=== PATIENT | female | born 1960 | race Caucasian/White ===

== ENCOUNTER → 2024-08-11 15:00 | Outpatient (REF) | payer OTHER, SELFPAY | LOC: WDC 15:00 | PROVIDERS: ATTENDING PHYSICIAN Nurse Practitioner Adult Health | DX: Z12.31 Encounter for screening mammogram for malignant neoplasm of breast (principal) | CPT/HCPCS: 77063; 77067 ==

== ENCOUNTER → 2024-09-20 12:55 | Outpatient (REF) | payer OTHER, SELFPAY | LOC: HWRAD 12:55 | PROVIDERS: ATTENDING PHYSICIAN Nurse Practitioner Adult Health | DX: M25.571 Pain in right ankle and joints of right foot (principal) | CPT/HCPCS: 73610 ==

== ENCOUNTER → 2024-10-18 13:56 | Outpatient (REF) | payer OTHER, SELFPAY | LOC: HWRAD 13:56 | PROVIDERS: ATTENDING PHYSICIAN Internal Medicine Rheumatology; REFERRING PHYSICIAN Nurse Practitioner Adult Health | DX: M81.0 Age-related osteoporosis without current pathological fracture (principal) | CPT/HCPCS: 77080 ==

== ENCOUNTER 2025-02-16 06:17 | Day surgery (SDC) | payer OTHER, SELFPAY | END 2025-02-16 08:53 | disposition home or self-care (01) | LOC: GI 06:17 | PROVIDERS: ATTENDING PHYSICIAN Specialist; FAMILY PHYSICIAN Nurse Practitioner Adult Health | DX: Z12.11 Encounter for screening for malignant neoplasm of colon (principal); K63.5 Polyp of colon; K57.30 Diverticulosis of large intestine without perforation or abscess without bleeding; K62.1 Rectal polyp; Z80.0 Family history of malignant neoplasm of digestive organs | CPT/HCPCS: 45380; 88305 ==

== ENCOUNTER 2025-08-05 04:33 | Emergency (ER) | payer MEDICARE, OTHER, SELFPAY ==
[2025-08-05 04:37] VITALS: BP 122/78
[2025-08-05 04:58] VITALS: BP 131/75
[2025-08-05 05:00] VITALS: BP 131/84
[2025-08-05] MEDS: ZOFRAN 4 MG IV (05:13)
[2025-08-05] MEDS: NSS 1000 IV (05:14)
[2025-08-05 05:22] LABS: Hematocrit 39.4 % (37.0-47.0); Hemoglobin 13.8 g/dL (12.0-16.0); Mean Corp Hgb Conc. 35.0 g/dL (33.0-37.0); Mean Corpuscular Volume 86.0 fL (81.0-99.0); Platelet Count 220 10^3/uL (130-400); Red Cell Dist. Width 12.1 % (11.5-14.5)
[2025-08-05 05:33] LABS: Urine Character Clear (Clear)
--- NOTE | 2025-08-05 05:39 | ED.GENMED ---
History of Present Illness
General
Chief Complaint: Abdominal Symptoms
Source: patient
Exam Limitations: none
Time Seen by Provider: 08/05/25 05:05
Nursing documentation reviewed up to this point in time: agreed with
History of Present Illness
History of Present Illness:
64-year-old female presenting to the emergency department today with concerns of 2 days of nausea vomiting diarrhea. Claims to have multiple episodes of each and difficulty tolerating by mouth. Has had some vague body aches. Denies any
significant significant fevers chest pain shortness of breath
Past History
Past History
ED Past Medical History: Other (Breast cancer)
Social History
Tobacco: Non-smoker
Alcohol: Occasional
Family History
Family History: Other (colon cancer, ovarian cancer, breast cancer)
Review of Systems
Review of Systems
Allergies reviewed?: Yes
All Other Systems: ROS reviewed and negative except as documented in HPI and ROS
Phy Exam
Physical Exam
Physical Exam:
GENERAL: Alert , in no apparent distress
EYE: pupils equal and reactive
NECK: Supple, no significant adenopathy.
ENT: o/p clr, mmm.
CARDIAC: Regular rate and rhythm .
LUNGS: Clear breath sounds bilaterally, no acute respiratory distress, no wheezes/rales/rhonchi
ABDOMEN: Soft, without focal tenderness, no r/g, no cvat
NEUROLOGICAL: Alert and oriented, no focal neuro deficits
SKIN: Warm and dry, skin intact.
MUSCULOSKELETAL: No edema, well perfused.
PSYCH: Normal and appropriate interaction.
Course
Orders/Labs/Results
Orders:
Orders
08/05/25 04:42
IV Insert/Care/Rem.- Treatment PRN
Straight cath- Treatment ONCE
08/05/25 05:06
Complete Blood Count/With Diff Urgent
Comprehensive Metabolic Panel Urgent
Lipase Urgent
08/05/25 05:10
Ondansetron Injectable [Zofran] 4 mg IV NOW STA
08/05/25 05:11
0.9% Sodium Chloride 1000 ml [Nss] 1,000 ml IV BOLUS
08/05/25 05:27
Urinalysis Reflex To Culture Urgent
Date Specimen was Collected: 08/05/25
Time Specimen was Collected: 04:43
Urine Microscopic Reflex Cult Urgent
Abnormal Lab Results
08/05/25 08/05/25
05:06 05:27
WBC 4.0 L 10^3/uL
(4.8-10.8)
Sodium 126 L mmol/L
(135-145)
Potassium 3.4 L mmol/L
(3.5-5.1)
Chloride 91 L mmol/L
(98-107)
Glucose 122 H mg/dl
(70-99)
AST 62 H U/L
(14-36)
ALT 63 H U/L
(0-35)
Urine Ketones 3+ A
(Negative)
Ur Occult Blood Reflex 4+ A
(Negative)
Urine RBC 3-6 A /HPF
(0-2)
Urine Bacteria (Reflex) Few A
(Negative)
Urine Albumin (Reflex) 3+ A
(Neg - Trace)
08/05/25 05:06
08/05/25 05:06
Vital Signs
Initial and Last Documented VS:
Initial Vital Signs
Temp Pulse Resp BP Pulse Ox
99.5 F 117 24 122/78 95
08/05/25 04:37 08/05/25 04:37 08/05/25 04:37 08/05/25 04:37 08/05/25 04:37
Last Documented Vital Signs
Temp Pulse Resp BP Pulse Ox
99.5 F 99 20 131/84 94
08/05/25 04:37 08/05/25 05:19 08/05/25 05:19 08/05/25 05:00 08/05/25 05:41
MDM/Problems Addressed
MDM/Problems Addressed:
64-year-old female presenting to the emergency department today with concerns of nausea vomiting diarrhea over the past 2 days. On arrival mildly tachycardic but improving after receiving fluids. Otherwise no abdominal pain to palpation. With
nausea vomiting diarrhea stomach bug is most likely. She was given Zofran and fluids. Patient reassessed a half an hour after treatment with significant improvement and able to tolerate by mouth. Heart rate improving to the 80s. Patient's sodium
was found to be 126. She was given a liter of fluid here at this point patient is tolerating by mouth and feeling much better. She was notified of the lab abnormality and advised for close outpatient follow-up for repeated testing to ensure this
is improving properly but otherwise stable for discharge. Return precautions given.
*Pulse Oximetry
SaO2: 94
Oxygen Mode of Delivery: Room air
Patient hypoxic: no (94)
*Critical Care Note
Total Time (30-74mins, 75-104mins- exclusive of procedures): Not Applicable
ED Attending Note
-
Portions of this chart may have been created with voice recognition software.� Occasional wrong word or��sound alike� substitutions may have occurred due to the inherent limitations of voice recognition software.
Discharge Plan
Departure
Patient Disposition: Home (Routine Discharge)
Date of Disposition: 08/05/25
Time of Disposition: 06:19
Patient with high blood pressure during this ER visit?: No
Condition: Good
Covid-19: Not Applicable
Discharge Problem:
Nausea, vomiting and diarrhea, Acute hyponatremia
Instructions: Dehydration, Adult (DC)
Prescriptions:
New
ondansetron 4 mg tablet,disintegrating
4 mg PO Q6H PRN (Reason: nausea and vomiting) Qty: 7 0RF
No Action
aspirin 81 MG tablet,delayed release (DR/EC)
81 mg PO DAILY
ascorbic acid (vitamin C) [Vitamin C] 500 MG tablet
1,000 mg PO DAILY
magnesium 250 MG tablet
500 mg PO DAILY
bupropion HCl 150 MG tablet extended release 24 hr
150 mg PO DAILY
calcium carbonate-vitamin D3 1 CAP capsule
2 cap PO DAILY
multivitamin with folic acid [Tab-A-Carroll] 1 TABLET tablet
1 tab PO DAILY
Referrals:
Shobha Ortiz CRNP [Family Provider, Internal Medicine]
Activity Restrictions/Additional Instructions:
You came to the emergency department today with concerns of nausea vomiting diarrhea consistent with a stomach bug. You were given medications here with improvement. You were found to have a low sodium level likely related to your vomiting and
diarrhea. Please make sure you consume plenty by mouth and electrolyte solution. Please follow closely with the primary care doctor for repeated labs. Return for any worsening, new or concerning symptoms.
Interventions
Interventions:
*Risk Screen - Suicide Last Done: 08/05/25 04:37
*General Assessment Last Done: 08/05/25 04:37
*Neglect/Abuse Screening Last Done: 08/05/25 04:37
*ED- Fall Risk Assessment Last Done: 08/05/25 04:37
*ED COVID-19 Vaccine History Last Done: 08/05/25 04:37
NR-Whqdwq-Fqzgfwevod Assessment Last Done: 08/05/25 05:30
Discharge Date and Time
Print Language: TAMAZIGHT
[2025-08-05 05:49] LABS: ALT (SGPT) 63 U/L (0-35); AST (SGOT) 62 U/L (14-36); Albumin 4.4 g/dl (3.5-5.0); Alkaline Phosphatase 50 U/L (38-126); Blood Urea Nitrogen 13 mg/dl (7-17); Calcium 9.1 mg/dl (8.4-10.2); Carbon Dioxide 27 mmol/L (22-30); Chloride 91 mmol/L (98-107); Glucose 122 mg/dl (70-99); Lipase 42 U/L (23-300); Potassium 3.4 mmol/L (3.5-5.1); Sodium 126 mmol/L (135-145); Total Protein 6.9 g/dl (6.3-8.2); eGFR > 60.00
[2025-08-05 06:00] VITALS: BP 122/62
[2025-08-05 07:23] LABS: Absolute Neutrophils -Man Diff 3.3 10^3/uL (1.4-6.5); Normal RBC Morphology Yes; Platelets Checked Yes; Total Cells Counted 100
== END 2025-08-05 06:44 | disposition home or self-care (01) ==
LOC: EMR 04:33
PROVIDERS: EMERGENCY PHYSICIAN Student in an Organized Health Care Education/Training Program; FAMILY PHYSICIAN Nurse Practitioner Adult Health
DX: R11.2 Nausea with vomiting, unspecified (principal); R19.7 Diarrhea, unspecified; E87.1 Hypo-osmolality and hyponatremia; Z80.0 Family history of malignant neoplasm of digestive organs; Z80.3 Family history of malignant neoplasm of breast; Z80.41 Family history of malignant neoplasm of ovary; Z85.3 Personal history of malignant neoplasm of breast
CPT/HCPCS: 99283; 96374; 96361; 80053; 81003; 81015; 83690; 85025

== ENCOUNTER 2025-08-06 20:17 | Inpatient (IN) | payer MEDICARE, OTHER, SELFPAY ==
[2025-08-06 13:46] VITALS: BP 146/85
[2025-08-06 14:09] LABS: Hematocrit 36.9 % (37.0-47.0); Hemoglobin 13.1 g/dL (12.0-16.0); Mean Corp Hgb Conc. 35.5 g/dL (33.0-37.0); Mean Corpuscular Volume 85.2 fL (81.0-99.0); Platelet Count 218 10^3/uL (130-400); Red Cell Dist. Width 11.9 % (11.5-14.5)
[2025-08-06 14:21] LABS: ALT (SGPT) 91 U/L (0-35); AST (SGOT) 62 U/L (14-36); Albumin 4.2 g/dl (3.5-5.0); Alkaline Phosphatase 51 U/L (38-126); Blood Urea Nitrogen 12 mg/dl (7-17); Calcium 9.1 mg/dl (8.4-10.2); Carbon Dioxide 26 mmol/L (22-30); Chloride 90 mmol/L (98-107); Glucose 107 mg/dl (70-99); Potassium 3.8 mmol/L (3.5-5.1); Sodium 127 mmol/L (135-145); Total Protein 6.8 g/dl (6.3-8.2); eGFR > 60.00
[2025-08-06 15:05] LABS: Nucleated Red Blood Cells % 0 %
[2025-08-06 16:00] VITALS: BMI 17.4
[2025-08-06 16:01] VITALS: BP 149/86
[2025-08-06] MEDS: NSS 1000 IV (16:11)
--- NOTE | 2025-08-06 16:12 | ED.GENMED ---
History of Present Illness
General
Chief Complaint: Rectal Bleeding
Source: patient
Exam Limitations: none
Time Seen by Provider: 08/06/25 15:41
History of Present Illness
History of Present Illness:
64-year-old female presents with ongoing nausea vomiting diarrhea. Now having maroon blood in the stool. Started this morning. Crampy abdominal pain. Ongoing nausea. Decreased p.o. intake. No travel history. No other family members are ill.
No recent antibiotics.
Past History
Past History
ED Past Medical History: Other (Breast cancer)
ED Past Surgical History: Gynecological, Orthopedic and Other (Blepharoplasty)
Social History
Tobacco: Non-smoker
Alcohol: Occasional
Family History
Family History: Other (colon cancer, ovarian cancer, breast cancer)
Review of Systems
Review of Systems
All Other Systems: Not applicable
Constitutional: Denies fever or chills
Phy Exam
Physical Exam
Physical Exam:
GENERAL: Alert and oriented in no apparent distress
EYE: Orbits normal.
NECK: Supple, no significant adenopathy.
ENT: Pharynx without erythema
CARDIAC: Regular rate and rhythm without any obvious murmurs.
LUNGS: Clear breath sounds,normal
ABDOMEN: Soft, without focal tenderness or distention
NEUROLOGICAL: Alert and oriented , grossly non-focal
SKIN: Warm and dry, no rash or lesion, no discoloration, skin intact.
MUSCULOSKELETAL: No edema,no deformity.Good color
PSYCH: Normal and appropriate interaction. Mild diffuse tenderness. No rebound or guarding no mass or hernia
Course
Orders/Labs/Results
Orders:
Orders
08/06/25 13:54
Complete Blood Count/With Diff Urgent
Comprehensive Metabolic Panel Urgent
08/06/25 16:00
CT Abd/Pel (IV only)-DH only Urgent
Comment:
Reason For Exam: Diffuse abdominal pain/bloody stool
IV Insert/Care/Rem.- Treatment PRN
0.9% Sodium Chloride 1000 ml [Nss] 1,000 ml IV BOLUS
08/06/25 16:07
Lactic Acid Urgent
Lipase Urgent
08/06/25 16:14
Ondansetron Injectable [Zofran] 4 mg IV NOW STA
08/06/25 17:18
STOOL [C difficile Antigen & Toxins] Urgent
[place] Source: Feces/Stool
Specimen Description:
Date Specimen was Collected: 08/06/25
Time Specimen was Collected: 16:38
Stool Culture Urgent
[place] Source: Feces/Stool
Specimen Description:
Date Specimen was Collected: 08/06/25
Time Specimen was Collected: 16:38
08/06/25 19:48
Admit/Transfer Patient As Directed
Co-Sign Provider:
Level of Care: Inpatient admission
Assign to:: Medical/Surgical
Physician / Group: Ino
Diagnosis: Acute Enteritis, Hyponatremia
Reason for Hospitalization: Acute Enteritis, Hyponatremia
Expected length of stay greater than two midnights?: Yes
ELOS- Estimated Length of Stay in days: 2
I certify the patient meets the requirements for IP care: Yes
08/06/25 19:49
PRN Pain Medication Management As Directed
May give lesser potent ordered pain med per pt: Yes
preference::
Protocol:: Medication orders for pain may be administered in a
manner that supports deferring to patient preference
when the pt is:
- Requesting an ordered lesser potent pain medication.
Least to most potent pain medications are defined
as: acetaminophen < NSAID < tramadol < opioids
(morphine, oxycodone, hydromorphone).
- Requesting a lesser dose of the same medication IF
ORDERED.
- Requesting a less intrusive route of administration
if both routes are prescribed by the provider (PO <
IV).
08/06/25 19:50
Code Status As Directed
Resuscitation Status: Full Code
08/06/25 20:40
Urine Osmolality Random [Osmolality, Random Urine] Urgent
Date Specimen was Collected: 08/06/25
Time Specimen was Collected: 19:37
Urine Sodium Urgent
Date Specimen was Collected: 08/06/25
Time Specimen was Collected: 19:37
08/06/25 20:52
Acetaminophen [Tylenol] 650 mg PO Q4HPRN PRN
HYDROmorphone [Dilaudid] 0.5 mg IV Q4HPRN PRN
KCl 40 Meq/0.9%Sodchl 1000 ml [NSS with KCL 40 MEQ] 40 meq in 1,000 ml IV 100 mls/hr
Ondansetron Injectable [Zofran] 4 mg IV Q6HPRN PRN
Trazodone [Desyrel] 100 mg PO HSPRN PRN sleep
08/06/25 20:52
TSH Reflex To Free T4 Routine
Activity As Directed
Activity Level: Ambulate
I/O [Intake/ Output] As Directed
Frequency: Per unit guidelines
Pneumatic Compression Sleeves As Directed
Type: Knee high
Vital Signs As Directed
Frequency: Per unit guidelines
Weight As Directed
Frequency: Daily
Oxygen Therapy [O2 Therapy] [RESP] Routine
Titrate/Wean O2 to maintain O2 sat greater than (%): 94
DX Deep Vein Thrombosis Video Routine
08/07/25 Breakfast
BRAT
At Your Request: Full Participation
Does patient need a safe tray?: No
Basic Metabolic Panel IN AM
Complete Blood Count/No Diff IN AM
Magnesium IN AM
Abnormal Lab Results
08/06/25
13:54
Hct 36.9 L %
(37.0-47.0)
Abs Immat Gran (auto) 0.2 H 10^3/uL
(0-0.05)
Absolute Lymphs (auto) 0.5 L 10^3/uL
(1.2-3.4)
Immature Gran % 4.7 H %
(0-0.5)
Lymphocytes % 9.1 L %
(20.5-51.1)
Monocytes % 11.0 H %
(1.7-9.3)
Sodium 127 L mmol/L
(135-145)
Chloride 90 L mmol/L
(98-107)
Glucose 107 H mg/dl
(70-99)
AST 62 H U/L
(14-36)
ALT 91 H U/L
(0-35)
08/06/25 13:54
08/06/25 13:54
Vital Signs
Initial and Last Documented VS:
Initial Vital Signs
Temp Pulse Resp BP Pulse Ox
98 F 86 18 146/85 98
08/06/25 13:46 08/06/25 13:46 08/06/25 13:46 08/06/25 13:46 08/06/25 13:46
Last Documented Vital Signs
Temp Pulse Resp BP Pulse Ox
98.3 F 75 18 135/77 96
08/07/25 07:33 08/07/25 07:33 08/07/25 07:33 08/07/25 07:33 08/07/25 07:33
MDM/Problems Addressed
Differential Diagnosis Includes:
Patient describing colitis. Doubt ischemic. Will check lactic acid CT scan, Zofran and fluids and stool culture.
*Radiology
Radiology exam reviewed: radiology read reviewed (Large and small bowel thickening)
*Pulse Oximetry
SaO2: 98
Oxygen Mode of Delivery: Room air
Patient hypoxic: no
*Critical Care Note
Total Time (30-74mins, 75-104mins- exclusive of procedures): Not Applicable
Data Reviewed
Review of Other/Old Records Reveals: Labs and Records
ED Attending Note
-
Portions of this chart may have been created with voice recognition software.� Occasional wrong word or��sound alike� substitutions may have occurred due to the inherent limitations of voice recognition software.
Discharge Plan
Departure
Patient Disposition: Admit
Date of Disposition: 08/06/25
Time of Disposition: 19:17
Admit to: Med/Surg
Presentation/result/management discussed w/ accepting MD/DO: Hospitalist
Discharge Problem:
Gastroenteritis, Hyponatremia
Interventions
Interventions:
*Risk Screen - Suicide Last Done: 08/06/25 22:08
*General Assessment Last Done: 08/06/25 16:15
*Neglect/Abuse Screening Last Done: 08/06/25 13:46
*ED- Fall Risk Assessment Last Done: 08/06/25 16:15
*ED COVID-19 Vaccine History Last Done: 08/06/25 22:08
*Nursing Disposition Last Done: 08/06/25 20:44
EQ-Wjapel-Lhlscsznlz Assessment Last Done: 08/06/25 16:15
ED- Cardiac Assessment Last Done: 08/06/25 16:15
ED- Pulmonary Assessment Last Done: 08/06/25 16:15
Discharge Date and Time
Discharge Date/Time: 08/06/25 20:44
[2025-08-06] MEDS: ZOFRAN 4 MG IV (16:23)
[2025-08-06 16:52] LABS: Lipase 71 U/L (23-300)
[2025-08-06 18:30] VITALS: BP 139/71
--- NOTE | 2025-08-06 19:53 | HPS.HSE ---
Family Physician
-
Family Physician: INTERVIEWE UNKNOWN - PT NOT
Chief Complaint
-
N/V/D
History of Present Illness
Patient is a 64y F with PMH significant for breast cancer who presents to ED complaining of N/V/D. Patient states that she woke feeling fairly well on Friday AM. By 9AM she had developed crampy abdominal pain, N/V and diarrhea. She reports
mostly loose, watery stools. Nausea and some emesis when she attempted to intake fluids. She presented to the ED here early in the AM on when symptoms persisted. She was treated with IVFs and antiemetics and felt improved.
Unfortunately, her symptoms persisted after her return home. She has had about 20 loose bowel movements overnight. This AM she noted some bright red blood mixed in the stool. She returned to the ED for further evaluation.
Patient ate at a restaurant Friday evening (cod) - but notes that she only had a bite or two. No other unusual / new food intake. No recent travel. No family sick contacts.
Medical History
Past Medical History
Past Medical History: Reports Other
Additional Past Medical History:
Breast Cancer s/p Surgery and XRT
IBS
Hypertension
Past Surgical History: Reports Other
Additional Past Surgical History:
Left Lumpectomy
Left Knee Arthroscopy
BSO
Abdominoplasty
Social History
Tobacco: Non-smoker
Alcohol: Occasional
Drug: None
Family History
Family History: Not pertinent
Allergies / Home Medications
Allergies reflects when Allergies were last updated in [facility].
Home Medications with original date entered in [facility]
Allergy/Medication List:
Allergies
Allergy/AdvReac Type Severity Reaction Status Date / Time
No Known Allergies Allergy Verified 08/05/25 04:37
Home Medications
calcium 600 mg (as carbonate)-vitamin D3 10 mcg (400 unit) capsule 1 cap PO DAILY 11/29/10
Lactobac no.2-Bifidobac no.1-S. thermo 112.5 billion cell capsule (Visbiome) 1 cap PO BID 08/06/25
NyQuil Liquicaps 1 cap PO HS 08/06/25
chlorthalidone 25 mg tablet 25 mg PO DAILY 08/06/25
cholecalciferol (vitamin D3) 125 mcg (5,000 unit) tablet 125 mcg PO Q48H 08/06/25
coffee extract 100 mg-phosphatidyl serine 100 mg capsule (Neuriva Original) 1 cap PO DAILY 08/06/25
magnesium glycinate 100 mg (as glycinate) tablet 100 mg PO HS 08/06/25
trazodone 100 mg tablet 100 mg PO HSPRN PRN sleep 08/06/25
Review of Systems
-
History Source: Patient
A 12 point ROS was completed and negative except as noted: Yes
Constitutional: Reports Fatigue; Denies Fever or Chills
EENT: Denies Sore Throat
Respiratory: Denies Cough or Trouble Breathing
Cardiac: Denies Chest Pain or Palpitations
Abdomen/GI: Reports Abdominal Pain, Nausea, Vomiting, Diarrhea, Bloody Stools and Anorexia
: Denies Dysuria, Frequency or Flank Pain
Musculoskeletal: Reports Muscle Pain; Denies Joint Pain or Edema
Neurological: Reports Headache; Denies Dizzy
Psych: Denies Depression or Anxiety
Physical Exam
Vital Signs
Vital Signs
Temp Pulse Resp BP Pulse Ox
98 F 86 18 139/71 97
08/06/25 13:46 08/06/25 13:46 08/06/25 13:46 08/06/25 18:30 08/06/25 18:31
Physical Exam
General: Other (64y F in no acute distress.)
HEENT: Moist mucous membranes and PERRLA
Respiratory: Clear; No Wheezes, Rales or Rhonchi
Cardiac: S1/S2 and Regular Rhythm; No Murmur
GI: Other (Soft, diffusely tender without rebound / guarding. Pos bowel sounds.)
Musculoskeletal: No Clubbing, No Cyanosis and No Edema
Neuro: AO x 3
Laboratory Results
-
08/06/25 13:54
08/06/25 13:54
Laboratory Results
Lactic Acid 1.0 mmol/L (0.7-2.0) 08/06/25 16:07
Total Bilirubin 0.8 mg/dl (0.2-1.3) 08/06/25 13:54
AST 62 U/L (14-36) H 08/06/25 13:54
ALT 91 U/L (0-35) H 08/06/25 13:54
Alkaline Phosphatase 51 U/L (38-126) 08/06/25 13:54
Lipase 71 U/L (23-300) 08/06/25 16:07
Impression/Plan
-
A/P: Patient is a 64y F with PMH significant for IBS and breast cancer who presents to ED complaining of N/V/D x 3-4 days.
Acute Gastroenteritis / Colitis
- Admit for further evaluation and treatment.
- Suspect foodborne illness after dining out on Friday.
- Follow-up results of stool studies. Observe off of abx for now.
- Supportive care including IVFs, antiemetics, etc.
- BRAT diet as tolerated in the AM.
- Follow for clinical improvement.
Hyponatremia
- Likely hypovolemic hyponatremia secondary to the above.
- Check urine studies for confirmation.
- IVF support as noted above and follow for improvement in Na levels.
- Hold chlorthalidone.
DVT Prophylaxis: SCDs
Code Status: Full
[2025-08-06 21:27] VITALS: BP 137/75
[2025-08-06] MEDS: NSS with KCL 40 MEQ 1000 IV (21:59)
[2025-08-06] MEDS: DESYREL 100 MG PO (22:54)
[2025-08-07 06:00] VITALS: BMI 23.6
[2025-08-07] MEDS: NSS with KCL 40 MEQ 1000 IV ×2 (07:04→15:43)
[2025-08-07 07:33] VITALS: BP 135/77
[2025-08-07 08:56] LABS: Hematocrit 33.2 % (37.0-47.0); Hemoglobin 11.6 g/dL (12.0-16.0); Mean Corp Hgb Conc. 34.9 g/dL (33.0-37.0); Mean Corpuscular Volume 86.7 fL (81.0-99.0); Platelet Count 224 10^3/uL (130-400); Red Cell Dist. Width 12.1 % (11.5-14.5)
[2025-08-07 09:23] LABS: Blood Urea Nitrogen 6 mg/dl (7-17); Calcium 8.0 mg/dl (8.4-10.2); Carbon Dioxide 25 mmol/L (22-30); Chloride 100 mmol/L (98-107); Estimated Creatinine Clearance 76 ml/min; Glucose 75 mg/dl (70-99); Magnesium 2.0 mg/dl (1.6-2.3); Potassium 3.5 mmol/L (3.5-5.1); Sodium 131 mmol/L (135-145); eGFR > 60.00
--- NOTE | 2025-08-07 10:27 | W.PN.HOSP.TC ---
Today's Communication/Plan
-
Continue supportive care
Assessment / Plan
Assessment / Plan
initial presentation:
Patient is a 64y F with PMH significant for IBS and breast cancer who presents to ED complaining of N/V/D x 3-[address] abd:
Questionable mild large and small bowel wall thickening versus findings due to limited distention.
Limited evaluation without oral contrast.
If thickened the differential diagnoses include infection, inflammation and less likely ischemia.
No evidence of intestinal obstruction.
Mild diverticulosis. No evidence of acute diverticulitis.
Mild free fluid in the pelvis likely reactive.
Hospital course by problem and A/P:
1. Acute Gastroenteritis / Colitis - Suspect foodborne illness after dining out on Friday. Improving
Follow-up results of stool studies. Observe off of abx for now.
Supportive care including IVFs, antiemetics, etc.
BRAT diet as tolerated in the AM.
Follow for clinical improvement.
2. Hyponatremia - Likely hypovolemic hyponatremia secondary to the above.
Check urine studies for confirmation.
IVF support as noted above and follow for improvement in Na levels.
Hold chlorthalidone.
DVT Prophylaxis: SCDs
Code Status: Full
Anticipated Discharge: 24 - 48 hours
Subjective/Interval History
-
Date of Service: August 07, 2025
Starting to feel better, rate of diarrhea improving.
Objective Data
-
Labs:
Laboratory Results
08/07/25
08:43
WBC 4.0 L
Hgb 11.6 L
Hct 33.2 L
Plt Count 224
Sodium 131 L
Potassium 3.5
Chloride 100
Carbon Dioxide 25
BUN 6 L
Creatinine 0.5 L
Glucose 75
Calcium 8.0 L
Vital Signs:
Vital Signs
Temp Pulse Resp BP Pulse Ox
98.3 F 75 18 135/77 96
08/07/25 07:33 08/07/25 07:33 08/07/25 07:33 08/07/25 07:33 08/07/25 07:33
I&O
08/06/25 08/07/25 08/08/25
06:59 06:59 06:59
Intake Total 1000 / 1000
Balance 1000 / 1000
Review of Systems
-
History Source: Patient
All other systems: Reviewed and negative
Physical Exam
-
General: Well Developed, Well Nourished, No Apparent Distress and Comfortable
HEENT: Normocephalic, Atraumatic and Moist Mucous Membranes
Respiratory: Clear to Auscultation
Cardiac: Regular Rhythm and S1/S2
GI: Soft, Nontender and Nondistended
Musculoskeletal: No Clubbing, No Cyanosis and No Edema
Skin: Warm and Dry
Psych: Calm
Data Reviewed
-
Labs: Labs Reviewed by me
--- NOTE | 2025-08-07 10:55 | CM ---
CM met with pt at bedside.
Pt resides with spouse and 2 dogs in a 2 story home with bedroom/bathroom on 2nd floor and a bathroom on 1st.
Pt is independent with ambulation using no AD and ind with adl's. + Bathhouse Attendant. No DME needs.
PCP is Shobha Ortiz. Pharmacy is [facility]. Reports having a + prescription plan.
No HC or SNF history.
Anticipate no skilled needs at dc. Spouse to transport home when stable for dc.
[2025-08-07 15:22] VITALS: BP 130/74
--- NOTE | 2025-08-07 17:02 | PTCARENOTE ---
Patient with c/o intermittent abd pain with movement, cramping when going to bathroom. Refused pain meds, continues on brat diet. IVF infusing as ordered.
[2025-08-07] MEDS: DESYREL 100 MG PO (22:36)
[2025-08-07] MEDS: DILAUDID 0.5 MG IV (22:37)
[2025-08-07 23:00] VITALS: BP 164/93
[2025-08-08] MEDS: NSS with KCL 40 MEQ 1000 IV (01:52)
[2025-08-08 06:00] VITALS: BMI 23.8
[2025-08-08 07:00] VITALS: BP 142/84
[2025-08-08 07:51] LABS: Hematocrit 31.6 % (37.0-47.0); Hemoglobin 11.1 g/dL (12.0-16.0); Mean Corp Hgb Conc. 35.1 g/dL (33.0-37.0); Mean Corpuscular Volume 86.3 fL (81.0-99.0); Platelet Count 242 10^3/uL (130-400); Red Cell Dist. Width 12.2 % (11.5-14.5)
[2025-08-08 08:20] LABS: Blood Urea Nitrogen < 2 mg/dl (7-17); Calcium 8.4 mg/dl (8.4-10.2); Carbon Dioxide 27 mmol/L (22-30); Chloride 99 mmol/L (98-107); Estimated Creatinine Clearance 76 ml/min; Glucose 105 mg/dl (70-99); Potassium 3.8 mmol/L (3.5-5.1); Sodium 131 mmol/L (135-145); eGFR > 60.00
[2025-08-08 10:22] LABS: Procalcitonin < 0.05 ng/ml (0.0-0.25)
--- NOTE | 2025-08-08 12:27 | W.PN.HOSP.TC ---
Today's Communication/Plan
-
Monitor vitals
See plan
Observe off antibiotic, Pro-Hamlet negative
Continue with fluids
Brat diet
Assessment / Plan
Assessment / Plan
initial presentation:
Patient is a 64y F with PMH significant for IBS and breast cancer who presents to ED complaining of N/V/D x 3-[address] abd:
Questionable mild large and small bowel wall thickening versus findings due to limited distention.
Limited evaluation without oral contrast.
If thickened the differential diagnoses include infection, inflammation and less likely ischemia.
No evidence of intestinal obstruction.
Mild diverticulosis. No evidence of acute diverticulitis.
Mild free fluid in the pelvis likely reactive.
Hospital course by problem and A/P:
Acute Gastroenteritis / Colitis - Suspect foodborne illness after dining out on Friday. Improving
Follow-up results of stool studies. Observe off of abx for now. procal neg
Supportive care including IVFs, antiemetics, etc.
BRAT diet as tolerated
Follow for clinical improvement.
Hyponatremia - Likely hypovolemic hyponatremia secondary to the above.
IVF support as noted above and follow for improvement in Na levels.
Hold chlorthalidone.
DVT Prophylaxis: SCDs
Code Status: Full
General: Well Developed, Well Nourished, No Apparent Distress and Comfortable
HEENT: Normocephalic, Atraumatic and Moist Mucous Membranes
Respiratory: Clear to Auscultation
Cardiac: Regular Rhythm and S1/S2
GI: Soft, Nontender and Nondistended
Musculoskeletal: No Clubbing, No Cyanosis and No Edema
Skin: Warm and Dry
Psych: Calm
Anticipated Discharge: Within 24 hours
Subjective/Interval History
-
Date of Service: August 08, 2025
Denies nausea
Objective Data
-
Labs:
Laboratory Results
08/08/25
07:30
WBC 5.8
Hgb 11.1 L
Hct 31.6 L
Plt Count 242
Sodium 131 L
Potassium 3.8
Chloride 99
Carbon Dioxide 27
BUN < 2 L
Creatinine 0.5 L
Glucose 105 H
Calcium 8.4
Vital Signs:
Vital Signs
Temp Pulse Resp BP Pulse Ox
98.4 F 85 16 142/84 98
08/08/25 07:00 08/08/25 07:00 08/08/25 07:00 08/08/25 07:00 08/08/25 07:55
I&O
08/07/25 08/08/25 08/09/25
06:59 06:59 06:59
Intake Total 1000 / 1000 650 / 650 960 / 960
Balance 1000 / 1000 650 / 650 960 / 960
[2025-08-08] MEDS: NSS 1000 IV (13:47)
--- NOTE | 2025-08-08 14:42 | CM ---
Chart reviewed and diet to advance, plan is to home with spouse when stable.
Plan; Home with spouse when stable.
[2025-08-08 15:00] VITALS: BP 145/79
--- NOTE | 2025-08-08 15:15 | PTCARENOTE ---
08/08- Patient states feeling nauseous with chills after eating lunch. She feels lightheaded when sitting up. She denies vomiting but does state 5/10 cramping pains throughout abdomen. Skin=warm/chills but dry. +PulsesX4. Abd
distended/soft/tender. +BSX4. Ice packs given along with fluids. NSS infusing as ordered. Continue to observe.
[2025-08-08 15:40] VITALS: BP 167/98
--- NOTE | 2025-08-08 15:40 | PTCARENOTE ---
08/08- Temp is currently 98.8, self-resolved with ice packs and fluids. BP is 167/98, checked BL arms. Notified Physician. Patient states feeling a little better but still chills, nausea and cramping. She denies wanting nausea medication currently
and wants to continue to observe. Marcia salvador given. Continue to monitor.
[2025-08-08] MEDS: APRESOLINE 5 MG IV (19:18)
[2025-08-08 23:00] VITALS: BP 145/78
[2025-08-08] MEDS: DILAUDID 0.25 MG IV (23:02)
[2025-08-08] MEDS: DESYREL 100 MG PO (23:02)
[2025-08-09] MEDS: NSS 1000 IV ×3 (01:35→18:25)
[2025-08-09 06:00] VITALS: BMI 23.8
[2025-08-09 07:00] VITALS: BP 142/83
[2025-08-09 10:10] LABS: Hematocrit 33.5 % (37.0-47.0); Hemoglobin 11.7 g/dL (12.0-16.0); Mean Corp Hgb Conc. 34.9 g/dL (33.0-37.0); Mean Corpuscular Volume 85.7 fL (81.0-99.0); Platelet Count 275 10^3/uL (130-400); Red Cell Dist. Width 12.4 % (11.5-14.5)
[2025-08-09 10:19] LABS: Blood Urea Nitrogen < 2 mg/dl (7-17); Calcium 7.9 mg/dl (8.4-10.2); Carbon Dioxide 30 mmol/L (22-30); Chloride 95 mmol/L (98-107); Estimated Creatinine Clearance 76 ml/min; Glucose 116 mg/dl (70-99); Potassium 3.3 mmol/L (3.5-5.1); Sodium 131 mmol/L (135-145); eGFR > 60.00
[2025-08-09] MEDS: IMODIUM 2 MG PO ×2 (10:19→16:43)
--- NOTE | 2025-08-09 11:57 | W.PN.HOSP.TC ---
Today's Communication/Plan
-
monitor vitals
see plan
stool WBC
Imodium
if symptoms dont improve then GI evaluation
follow fever curve
replete K
Assessment / Plan
Assessment / Plan
initial presentation:
Patient is a 64y F with PMH significant for IBS and breast cancer who presents to ED complaining of N/V/D x 3-[address] abd:
Questionable mild large and small bowel wall thickening versus findings due to limited distention.
Limited evaluation without oral contrast.
If thickened the differential diagnoses include infection, inflammation and less likely ischemia.
No evidence of intestinal obstruction.
Mild diverticulosis. No evidence of acute diverticulitis.
Mild free fluid in the pelvis likely reactive.
Hospital course by problem and A/P:
Acute Gastroenteritis / Colitis - Suspect foodborne illness after dining out on Friday. CT with SB and large bowel thickening.
Follow-up results of stool studies, so far neg. trial of imodium. Observe off of abx for now. procal neg. ordered stool WBC which wasnt ordered on admission. awaiting results
Supportive care including IVFs, antiemetics, etc.
BRAT diet as tolerated
still with diarrhea
fever 08/08; unsure how accurate the reading is; confirmed with RN that temp came down without any intervention
Follow for clinical improvement. if doesnt feel good today then GI evaluation
Hyponatremia - Likely hypovolemic hyponatremia secondary to the above.
IVF support as noted above and follow for improvement in Na levels.
Hold chlorthalidone.
HTN
Holding chlorthalidone secondary to hyponatremia
Start hydralazine as needed
hypokalemia
replete
DVT Prophylaxis: lovenox
Code Status: Full
General: Well Developed, Well Nourished, No Apparent Distress and Comfortable
HEENT: Normocephalic, Atraumatic and Moist Mucous Membranes
Respiratory: Clear to Auscultation
Cardiac: Regular Rhythm and S1/S2
GI: Soft, Nontender and Nondistended
Musculoskeletal: No Edema
Skin: Warm and Dry
Psych: Calm
Anticipated Discharge: Within 24 hours
Subjective/Interval History
-
Date of Service: August 09, 2025
still with ongoing diarrhea
Objective Data
-
Labs:
Laboratory Results
08/09/25
07:23
WBC 8.5
Hgb 11.7 L
Hct 33.5 L
Plt Count 275
Sodium 131 L
Potassium 3.3 L
Chloride 95 L
Carbon Dioxide 30
BUN < 2 L
Creatinine 0.5 L
Glucose 116 H
Calcium 7.9 L
Vital Signs:
Vital Signs
Temp Pulse Resp BP Pulse Ox
98.5 F 86 18 142/83 97
08/09/25 07:00 08/09/25 07:00 08/09/25 07:00 08/09/25 07:00 08/09/25 07:00
I&O
08/08/25 08/09/25 08/10/25
06:59 06:59 06:59
Intake Total 650 / 650 4080 / 4080
Balance 650 / 650 4080 / 4080
--- NOTE | 2025-08-09 12:12 | CM ---
CM reviewed chart, care ongoing.
Patient seen bedside, denies needs at this time.
Patient confirms transportation home when stable.
IMM verbally reviewed, provided with copy, placed in chart.
CM will continue to follow for all discharge planning needs.
Plan; home no needs when stable
[2025-08-09 12:23] LABS: Absolute Neutrophils -Man Diff 5.6 10^3/uL (1.4-6.5)
[2025-08-09 12:24] LABS: Anisocytosis Slight; Hypochromasia 1+; Normal RBC Morphology No; Ovalocytes Slight; Platelets Checked Yes; Total Cells Counted 100
[2025-08-09] MEDS: KCL 40 MEQ PO (13:19)
[2025-08-09 14:29] VITALS: BP 150/81
[2025-08-09] MEDS: TYLENOL 650 MG PO (18:20)
[2025-08-09] MEDS: ZOSYN 50 IV (18:21)
[2025-08-09] MEDS: LOVENOX 40 MG SC (18:22)
[2025-08-09 23:54] VITALS: BP 144/89
[2025-08-10] MEDS: ZOSYN 50 IV ×3 (00:12→11:12)
[2025-08-10] MEDS: DESYREL 100 MG PO ×2 (00:12→21:59)
[2025-08-10] MEDS: DILAUDID 0.25 MG IV ×2 (00:13→21:59)
[2025-08-10] MEDS: NSS 1000 IV ×3 (03:31→17:00)
[2025-08-10 06:00] VITALS: BMI 24.1
[2025-08-10 07:00] VITALS: BP 163/89
[2025-08-10 07:52] VITALS: BMI 24.1
[2025-08-10 09:05] LABS: Hematocrit 29.6 % (37.0-47.0); Hemoglobin 10.5 g/dL (12.0-16.0); Mean Corp Hgb Conc. 35.5 g/dL (33.0-37.0); Mean Corpuscular Volume 84.8 fL (81.0-99.0); Platelet Count 245 10^3/uL (130-400); Red Cell Dist. Width 12.5 % (11.5-14.5)
[2025-08-10 09:59] LABS: Blood Urea Nitrogen < 2 mg/dl (7-17); Calcium 8.0 mg/dl (8.4-10.2); Carbon Dioxide 28 mmol/L (22-30); Chloride 98 mmol/L (98-107); Estimated Creatinine Clearance 76 ml/min; Glucose 96 mg/dl (70-99); Potassium 3.5 mmol/L (3.5-5.1); Sodium 131 mmol/L (135-145); eGFR > 60.00
--- NOTE | 2025-08-10 10:45 | CON.GI ---
Addendum entered and electronically signed by Mis Gonzales Do, MD 08/10/25 16:19:
I saw and examined the patient.
The TRAY CHECKER's note was reviewed and I agree with the note.
Comment: Leah is a 64yo W with h/o remote breast ca s/p chemoXRT and surgery follows with Dr Mazariegos for IBS who was admitted for acute profuse diarrhea. She had recent Cscope 02/[address] Mazariegos that was stable polyps and tics. No FH of IBD.
She denies any new meds change in diet or travel. Vitals stable NTTP NABs. Labs reviewed
Impression
- Acute non bloody diarrhea
CT suggestive of enteritis and colitis -
stool studies consistent with salmonella enteritis
- Dehydration
- IBS
- HTN
- Remote h/o breast cancer
- Fever
Recommendation
- D/w patient results of stool studies. recommend good food hygiene
- Ok to narrow zosyn to IV cipro to complete 7 day course
- Probiotic outpatient afterwards
- C/w low residue diet
GI will sign off please call for ?
-
Original Note:
Consultation
-
Date/Time Consultation Requested: 08/10/25 0850
Date/Time Consultation Performed: 08/10/25 1045
Requesting Provider: Get Ortiz MD
Performing Provider: FAUSTINA Watkins, Mis Mendez MD
Reason for Consultation: abdominal pain, nausea, diarrhea
Medical History
Chief Complaint / HPI
History of Present Illness:
Pt is a 64yo with hx breast CA in 2009 with lumpectomy and radiation with tamoxifen treatment, HTN, IBS was feeling well until 08/03 when pt began with onset of explosive diarrhea with nausea, vomiting, and abdominal pain. She denies any recent
travel, new medication, sick contact and does not eat out often but admits to eating codd fish and broccoli 2 days prior to onset. She came to ER 08/05 for hydration then returned 08/06 with continued symptoms. She continued with nausea, decreased
oral intakes and frequent some volumes of diarrhea with urgency. She admits to less volume and frequency since onset. She did initially see blood in stools but now yellow/brown/green loose. CT 08/06 with mild large and small bowel wall
thickening versus findings due to limited distention. Limited evaluation without oral contrast. If thickened the differential diagnoses include infection, inflammation and less likely ischemia. No evidence of intestinal obstruction.diverticulosis,
mild free fluid in pelvis.
She admits to some wt loss since onset and dry mouth. She also has diffuse abdominal pain with bloating. She denies odynophagia, GERD, constipation or black stools. Baseline GI symptoms are alternating diarrhea and constipation. Initial labs
without leukocytosis but + fever up to 101.5. Last colonoscopy 02/[address] Mazariegos with HP polyps, diverticulosis. Zosyn added 08/11.
Past Medical History
Past Medical History: Cancer (breast CA s/p surgery and XRT), HTN and Other (IBS, osteoporsis, colon polyps)
Social History
Tobacco: Non-Smoker
Alcohol: Occasional
Drug: None
Personal:
Living: With Family
Employment: Retired
Family History
Family History: Other (father with colon CA)
Allergies / Home Medications
Allergy/AdvReac Type Severity Reaction Status Date / Time
No Known Allergies Allergy Verified 08/05/25 04:37
�Medication �Instructions �Recorded
calcium 600 mg (as 1 cap PO DAILY Supplement 11/29/10
carbonate)-vitamin D3 10 mcg (400
unit) capsule
Lactobac no.2-Bifidobac no.1-S. 1 cap PO BID Supplement 08/06/25
thermo 112.5 billion cell capsule
(Visbiome)
NyQuil Liquicaps 1 cap PO HS Sleep 08/06/25
chlorthalidone 25 mg tablet 25 mg PO DAILY Blood Pressure 08/06/25
cholecalciferol (vitamin D3) 125 125 mcg PO Q48H Supplement 08/06/25
mcg (5,000 unit) tablet
coffee extract 100 mg-phosphatidyl 1 cap PO DAILY Supplement 08/06/25
serine 100 mg capsule (Neuriva
Original)
magnesium glycinate 100 mg (as 100 mg PO HS Supplement 08/06/25
glycinate) tablet
trazodone 100 mg tablet 100 mg PO HSPRN PRN sleep 08/06/25
Review of Systems
-
History Source: Patient
Constitutional: Reports Fever and Other (sweats)
EENT: Reports No Symptoms
Respiratory: Reports No Symptoms
Abdomen/GI: Reports Abdominal Pain, Nausea, Vomiting and Diarrhea
: Reports No Symptoms
Musculoskeletal: Reports No Symptoms
Skin: Reports No Symptoms
Neurological: Reports Weakness
Endocrine: Reports No Symptoms
Hematologic/Lymphatic: Reports Bleeding (with onset )
Vital Signs
Temp Pulse Resp BP Pulse Ox
99.5 F 90 18 163/89 93
08/10/25 07:00 08/10/25 07:00 08/10/25 07:00 08/10/25 07:00 08/10/25 07:00
Physical Exam
Exam
General: Well Developed, Well Nourished and No Apparent Distress
HEENT: Normocephalic and Anicteric
Respiratory: Clear
Cardiac: Regular Rhythm
GI: Soft, Tender (mild diffuse ) and Distended
Musculoskeletal: No Clubbing and No Cyanosis
Skin: Warm and Dry
Neuro: Awake, Alert and AO x 3
Psych: Calm
Results
WBC 8.3 10^3/uL (4.8-10.8) 08/10/25 08:35
Hgb 10.5 g/dL (12.0-16.0) L 08/10/25 08:35
Hct 29.6 % (37.0-47.0) L 08/10/25 08:35
MCV 84.8 fL (81.0-99.0) 08/10/25 08:35
Plt Count 245 10^3/uL (130-400) 08/10/25 08:35
Absolute Neuts (auto) 3.7 10^3/uL (1.4-6.5) 08/06/25 13:54
Sodium 131 mmol/L (135-145) L 08/10/25 08:35
Potassium 3.5 mmol/L (3.5-5.1) 08/10/25 08:35
Chloride 98 mmol/L (98-107) 08/10/25 08:35
Carbon Dioxide 28 mmol/L (22-30) 08/10/25 08:35
BUN < 2 mg/dl (7-17) L 08/10/25 08:35
Creatinine 0.5 mg/dL (0.6-1.0) L 08/10/25 08:35
Calcium 8.0 mg/dl (8.4-10.2) L 08/10/25 08:35
Total Bilirubin 0.8 mg/dl (0.2-1.3) 08/06/25 13:54
AST 62 U/L (14-36) H 08/06/25 13:54
ALT 91 U/L (0-35) H 08/06/25 13:54
Alkaline Phosphatase 51 U/L (38-126) 08/06/25 13:54
Lipase 71 U/L (23-300) 08/06/25 16:07
Diagnostic Image Results:
08/06 CT a/p IV only
IMPRESSION: Questionable mild large and small bowel wall thickening versus findings due to limited distention. Limited evaluation without oral contrast. If thickened the differential diagnoses include infection, inflammation and less likely
ischemia. No evidence of intestinal obstruction.
Mild diverticulosis. No evidence of acute diverticulitis.
Mild free fluid in the pelvis likely reactive.
Prior GI Procedures:
Colonoscopy:
02/2025 mazariegos - One diminutive polyp in the sigmoid colon, removed
with a Roombeatsmbo cold forceps. Resected and retrieved.
- Two diminutive polyps in the rectum, removed with a
jumbo cold forceps. Resected and retrieved.
- Diverticulosis in the sigmoid colon, in the
descending colon and in the distal transverse colon.
bx HP polyp
Assessment / Plan
-
Pt is a 64yo with hx breast CA in 2009 with lumpectomy and radiation with tamoxifen treatment, HTN, IBS was feeling well until 08/03 when pt began with onset of explosive diarrhea with nausea, vomiting, and abdominal pain. She denies any recent
travel, new medication, sick contact and does not eat out often but admits to eating codd fish and broccoli 2 days prior to onset. She came to ER 08/05 for hydration then returned 08/06 with continued symptoms. She continued with nausea, decreased
oral intakes and frequent some volumes of diarrhea with urgency. She admits to less volume and frequency since onset. She did initially see blood in stools but now yellow/brown/green loose. CT 08/06 with mild large and small bowel wall
thickening versus findings due to limited distention. Limited evaluation without oral contrast. If thickened the differential diagnoses include infection, inflammation and less likely ischemia. No evidence of intestinal obstruction.diverticulosis,
mild free fluid in pelvis. She admits to some wt loss since onset and dry mouth. She also has diffuse abdominal pain with bloating. She denies odynophagia, GERD, constipation or black stools. Baseline GI symptoms are alternating diarrhea and
constipation. Initial labs without leukocytosis but + fever up to 101.5. Last colonoscopy 02/[address] Mazariegos with HP polyps, diverticulosis. Zosyn added 08/11.
-sudden onset of abdominal pain, nausea, vomiting, and diarrhea since 08/03
-CT with mild small and large bowel thickening vs limited distention
-stool with many WBC's
-fever
-mild LFT elevation
-hyponatremia
other med problems:
-breast CA in 2009 with lumpectomy and radiation with tamoxifen treatment
- HTN
- IBS
PLAN:
etiology of symptoms related to infectious etiology with sudden onset vs less likely IBD with stable colonoscopy in February vs other
c-diff, ecoli, Campylobacter, neg many WBC in stool-- await salmonella, add giardia, crypto and norovirus
will add blood cx with fever overnight
if not improving consider repeat CT with IV and oral contrast
if continued symptoms consider repeat imaging
add supplement daily
cont IVF
cont Zosyn for now
trend stool record
add repeat LFT's with some elevation on admission
Imodium given 08/09 with minimal change
-
-
Thank you for consultation and allowing me to participate in the patient's care. Please call the production laborer GI physician during the after hours with any questions or concerns.
--- NOTE | 2025-08-10 10:52 | CM ---
Continues on IV antibiotics.
Temp 101.8 at 4 pm last evening.
Family to transport home.
PLAN Home no needs
[2025-08-10 11:00] VITALS: BP 145/85
--- NOTE | 2025-08-10 12:22 | W.PN.HOSP.TC ---
Today's Communication/Plan
-
Monitor vital signs and see plan
Follow fever curve
Continue with Zosyn
GI evaluation
Continue with fulls for now
cw IVF
Assessment / Plan
Assessment / Plan
initial presentation:
Patient is a 64y F with PMH significant for IBS and breast cancer who presents to ED complaining of N/V/D x 3-[address] abd:
Questionable mild large and small bowel wall thickening versus findings due to limited distention.
Limited evaluation without oral contrast.
If thickened the differential diagnoses include infection, inflammation and less likely ischemia.
No evidence of intestinal obstruction.
Mild diverticulosis. No evidence of acute diverticulitis.
Mild free fluid in the pelvis likely reactive.
Hospital course by problem and A/P:
Suspect acute Gastroenteritis / Colitis - CT with SB and large bowel thickening.
Was initially managed conservatively however now started to spike fever and no improvement in her symptoms. Started Zosyn. GI evaluation
Follow-up results of stool studies, so far neg. not much improvement after Imodium. Many WBC in stool
Supportive care including IVFs, antiemetics, etc.
Diet downgraded to fulls, monitor
still with diarrhea
Follow fever curve
bcx
Hyponatremia - Likely hypovolemic hyponatremia secondary to the above.
IVF support as noted above and follow for improvement in Na levels.
Hold chlorthalidone.
HTN
Holding chlorthalidone secondary to hyponatremia
Start hydralazine as needed
hypokalemia
replete
DVT Prophylaxis: lovenox
Code Status: Full
General: Well Developed, Well Nourished, No Apparent Distress and Comfortable
HEENT: Normocephalic, Atraumatic and Moist Mucous Membranes
Respiratory: Clear to Auscultation
Cardiac: Regular Rhythm and S1/S2
GI: Soft, mild tender and Nondistended
Musculoskeletal: No Edema
Skin: Warm and Dry
Psych: Calm
I spent a total of 52 minutes with the patient or on the floor. More than 50% of this time involved counseling and coordination of care.
Anticipated Discharge: 24 - 48 hours
Subjective/Interval History
-
Date of Service: August 10, 2025
Fever overnight
Objective Data
-
Labs:
Laboratory Results
08/10/25
08:35
WBC 8.3
Hgb 10.5 L
Hct 29.6 L
Plt Count 245
Sodium 131 L
Potassium 3.5
Chloride 98
Carbon Dioxide 28
BUN < 2 L
Creatinine 0.5 L
Glucose 96
Calcium 8.0 L
Total Bilirubin Pending
AST Pending
ALT Pending
Alkaline Phosphatase Pending
Vital Signs:
Vital Signs
Temp Pulse Resp BP Pulse Ox
99.5 F 97 18 145/85 93
08/10/25 07:00 08/10/25 11:00 08/10/25 07:00 08/10/25 11:00 08/10/25 07:00
I&O
08/09/25 08/10/25 08/11/25
06:59 06:59 06:59
Intake Total 4080 / 4080 4520 / 4520
Balance 4080 / 4080 4520 / 4520
[2025-08-10 12:54] LABS: ALT (SGPT) 33 U/L (0-35); AST (SGOT) 20 U/L (14-36); Albumin 3.1 g/dl (3.5-5.0); Alkaline Phosphatase 47 U/L (38-126); Total Protein 5.1 g/dl (6.3-8.2)
[2025-08-10 14:11] LABS: Absolute Neutrophils -Man Diff 6.3 10^3/uL (1.4-6.5); Normal RBC Morphology Yes; Platelets Checked Yes; Total Cells Counted 100
[2025-08-10 15:30] VITALS: BP 152/80
[2025-08-10 16:00] VITALS: BP 161/80
[2025-08-10] MEDS: CIPRO 400 MG 200 IV (17:00)
[2025-08-10] MEDS: LOVENOX 40 MG SC (17:00)
[2025-08-10] MEDS: APRESOLINE 5 MG IV (17:01)
[2025-08-10 23:12] VITALS: BP 146/76
[2025-08-11] MEDS: NSS 1000 IV ×3 (02:00→16:23)
[2025-08-11] MEDS: CIPRO 400 MG 200 IV ×2 (05:19→18:13)
[2025-08-11 06:00] VITALS: BMI 23.8
[2025-08-11 07:49] VITALS: BP 141/72
[2025-08-11 08:22] LABS: Hematocrit 27.3 % (37.0-47.0); Hemoglobin 9.9 g/dL (12.0-16.0); Mean Corp Hgb Conc. 36.3 g/dL (33.0-37.0); Mean Corpuscular Volume 85.3 fL (81.0-99.0); Platelet Count 271 10^3/uL (130-400); Red Cell Dist. Width 12.3 % (11.5-14.5)
[2025-08-11 08:58] LABS: Blood Urea Nitrogen < 2 mg/dl (7-17); Calcium 7.9 mg/dl (8.4-10.2); Carbon Dioxide 29 mmol/L (22-30); Chloride 97 mmol/L (98-107); Estimated Creatinine Clearance 76 ml/min; Glucose 100 mg/dl (70-99); Potassium 2.7 mmol/L (3.5-5.1); Sodium 131 mmol/L (135-145); eGFR > 60.00
[2025-08-11 09:12] LABS: Nucleated Red Blood Cells % 0 %
[2025-08-11] MEDS: IMODIUM 2 MG PO (09:41)
[2025-08-11] MEDS: KCL 40 MEQ PO (09:41)
[2025-08-11] MEDS: KCL 270 MEQ IV (09:41)
--- NOTE | 2025-08-11 10:39 | PN.CDI ---
CDI
- -
CDI:
Physician Documentation Request
Admit Date: 08/06/25 20:17
Dear Doctor Angel,
Please review the following and provide your response in the progress notes.
Clinical Indicators:
Pt admitted with Enteritis found to have salmonella enteritis on IV Zosyn
Tmax 101.5 ( 08/09),Pulse 97 ( 08/10)
Please clarify which of the following most accurately describes the status of the patient's infection:
Sepsis-POA
- Systemic manifestations of infection, with 2 or more SIRS criteria which include:
- Fever >100.9 degrees F or hypothermia < 96.8 degrees F
- Leukocytosis - WBC > 12,000 or leukopenia - WBC < 4,000 or > 10% bands
- Tachycardia > 90 beats per minute
- Tachypnea - RR > 20 breaths per minute or PaCO2 , 32mmHg
Source: Merck Manual 2013
Salmonella enteritis Only, Without Systemic Illness
Other ( please specify)
Use of terms such as suspected, likely, concern for, or probable (associated with a specific diagnosis that is being evaluated, monitored, or treated as if it exists) are acceptable and can be coded in the inpatient setting, when documented at the
time of discharge.
Thank you,
Citlaly Pino RN
CDI Specialist
[place] [facility]
Please use your independent medical judgment in providing your response.
--- NOTE | 2025-08-11 10:45 | PN.CDI ---
CDI
- -
CDI:
Physician Documentation Request
Admit Date: 08/06/25 20:17
Admit Date: 08/06/25 20:17
Dear Doctor Angel,
Please review the following and provide your response in the progress notes.
Clinical Indicators:
Pt admitted with Enteritis found to have salmonella enteritis on IV Zosyn
Tmax 101.5 ( 08/09),Pulse 97 ( 08/10)
Please clarify which of the following most accurately describes the status of the patient's infection:
Sepsis
- Systemic manifestations of infection, with 2 or more SIRS criteria which include:
- Fever >100.9 degrees F or hypothermia < 96.8 degrees F
- Leukocytosis - WBC > 12,000 or leukopenia - WBC < 4,000 or > 10% bands
- Tachycardia > 90 beats per minute
- Tachypnea - RR > 20 breaths per minute or PaCO2 , 32mmHg
Source: Merck Manual 2013
Salmonella enteritis Only, Without Systemic Illness
Other ( please specify)
Use of terms such as suspected, likely, concern for, or probable (associated with a specific diagnosis that is being evaluated, monitored, or treated as if it exists) are acceptable and can be coded in the inpatient setting, when documented at the
time of discharge.
Thank you,
Citlaly Pino RN
CDI Specialist
[place] [facility]
Please use your independent medical judgment in providing your response.
--- NOTE | 2025-08-11 13:04 | W.PN.HOSP.TC ---
Today's Communication/Plan
-
Monitor vital signs and see plan
Replete potassium aggressively
Continue with gentle hydration
Continue with ciprofloxacin
Assessment / Plan
Assessment / Plan
initial presentation:
Patient is a 64y F with PMH significant for IBS and breast cancer who presents to ED complaining of N/V/D x 3-[address] abd:
Questionable mild large and small bowel wall thickening versus findings due to limited distention.
Limited evaluation without oral contrast.
If thickened the differential diagnoses include infection, inflammation and less likely ischemia.
No evidence of intestinal obstruction.
Mild diverticulosis. No evidence of acute diverticulitis.
Mild free fluid in the pelvis likely reactive.
Hospital course by problem and A/P:
Suspect acute Gastroenteritis / Colitis - CT with SB and large bowel thickening likely secondary to Salmonella
Was initially managed conservatively however now started to spike fever and no improvement in her symptoms. Continue with ciprofloxacin. Seen by GI
Follow-up results of stool studies, so far neg. not much improvement after Imodium. Many WBC in stool
Supportive care including IVFs, antiemetics, etc.
cw LRD
still with diarrhea, imodium
Follow fever curve
bcx
Hyponatremia - Likely hypovolemic hyponatremia secondary to the above.
IVF support as noted above and follow for improvement in Na levels.
Hold chlorthalidone.
Osteoporosis
Holding chlorthalidone secondary to hyponatremia
Start hydralazine as needed
hypokalemia
replete
DVT Prophylaxis: lovenox
Code Status: Full
General: Well Developed, Well Nourished, No Apparent Distress and Comfortable
HEENT: Normocephalic, Atraumatic and Moist Mucous Membranes
Respiratory: Clear to Auscultation
Cardiac: Regular Rhythm and S1/S2
GI: Soft, mild tender and Nondistended
Musculoskeletal: No Edema
Psych: Calm
Anticipated Discharge: Within 24 hours
Subjective/Interval History
-
Date of Service: August 11, 2025
Denies nausea
Objective Data
-
Labs:
Laboratory Results
08/11/25
07:18
WBC 8.4
Hgb 9.9 L
Hct 27.3 L
Plt Count 271
Sodium 131 L
Potassium 2.7 L*
Chloride 97 L
Carbon Dioxide 29
BUN < 2 L
Creatinine 0.5 L
Glucose 100 H
Calcium 7.9 L
Vital Signs:
Vital Signs
Temp Pulse Resp BP Pulse Ox
99.2 F 92 16 141/72 95
08/11/25 07:49 08/11/25 07:49 08/11/25 07:49 08/11/25 07:49 08/11/25 07:49
I&O
08/10/25 08/11/25 08/12/25
06:59 06:59 06:59
Intake Total 4520 / 4520 2775 / 2775
Balance 4520 / 4520 2775 / 2775
[2025-08-11 16:01] VITALS: BP 161/88
[2025-08-11] MEDS: TYLENOL 650 MG PO (16:07)
[2025-08-11] MEDS: LOVENOX 40 MG SC (18:13)
[2025-08-11] MEDS: DESYREL 100 MG PO (22:47)
[2025-08-11 23:00] VITALS: BP 153/84
[2025-08-12] MEDS: NSS 1000 IV ×4 (01:18→20:02)
[2025-08-12] MEDS: TYLENOL 650 MG PO ×2 (03:04→21:19)
[2025-08-12] MEDS: CIPRO 400 MG 200 IV ×2 (05:41→18:12)
[2025-08-12 06:00] VITALS: BMI 23.6
[2025-08-12 07:20] VITALS: BP 138/77
[2025-08-12 09:02] LABS: Hematocrit 30.8 % (37.0-47.0); Hemoglobin 11.0 g/dL (12.0-16.0); Mean Corp Hgb Conc. 35.7 g/dL (33.0-37.0); Mean Corpuscular Volume 86.0 fL (81.0-99.0); Platelet Count 334 10^3/uL (130-400); Red Cell Dist. Width 12.4 % (11.5-14.5)
[2025-08-12 09:07] LABS: Blood Urea Nitrogen < 2 mg/dl (7-17); Calcium 8.2 mg/dl (8.4-10.2); Carbon Dioxide 29 mmol/L (22-30); Chloride 101 mmol/L (98-107); Estimated Creatinine Clearance 76 ml/min; Glucose 90 mg/dl (70-99); Potassium 3.0 mmol/L (3.5-5.1); Sodium 136 mmol/L (135-145); eGFR > 60.00
[2025-08-12 10:02] LABS: Nucleated Red Blood Cells % 0 %
--- NOTE | 2025-08-12 12:46 | W.PN.HOSP.TC ---
Today's Communication/Plan
-
Monitor vitals
See plan
Started to feel better
Continue with ciprofloxacin
Monitor p.o. intake, if continues to improve then likely can be discharged. Patient aware
cw IVF for now
Discussed with spouse at bedside
Assessment / Plan
Assessment / Plan
initial presentation:
Patient is a 64y F with PMH significant for IBS and breast cancer who presents to ED complaining of N/V/D x 3-[address] abd:
Questionable mild large and small bowel wall thickening versus findings due to limited distention.
Limited evaluation without oral contrast.
If thickened the differential diagnoses include infection, inflammation and less likely ischemia.
No evidence of intestinal obstruction.
Mild diverticulosis. No evidence of acute diverticulitis.
Mild free fluid in the pelvis likely reactive.
Hospital course by problem and A/P:
Suspect acute Gastroenteritis / Colitis - CT with SB and large bowel thickening likely secondary to Salmonella
Sepsis likely 2/2 salmonella
Was initially managed conservatively however now started to spike fever and no improvement in her symptoms. Continue with ciprofloxacin. Seen by GI
Follow-up results of stool studies, so far neg. not much improvement after Imodium. Many WBC in stool
Supportive care including IVFs, antiemetics, etc.
cw LRD
still with diarrhea buyt appears to be improving
Follow fever curve
bcx NGTD
Hyponatremia - Likely hypovolemic hyponatremia secondary to the above.
IVF support as noted above and follow for improvement in Na levels.
Hold chlorthalidone.
Osteoporosis
Holding chlorthalidone secondary to hyponatremia
Start hydralazine as needed
hypokalemia
replete
DVT Prophylaxis: lovenox
Code Status: Full
General: Well Developed, Well Nourished, No Apparent Distress and Comfortable
HEENT: Normocephalic, Atraumatic and Moist Mucous Membranes
Respiratory: Clear to Auscultation
Cardiac: Regular Rhythm and S1/S2
GI: Soft, mild tender and Nondistended
Musculoskeletal: No Edema
Psych: Calm
Anticipated Discharge: Within 24 hours
Subjective/Interval History
-
Date of Service: August 12, 2025
feeling better
Objective Data
-
Labs:
Laboratory Results
08/12/25
07:53
WBC 8.2
Hgb 11.0 L
Hct 30.8 L
Plt Count 334 D
Sodium 136
Potassium 3.0 L
Chloride 101
Carbon Dioxide 29
BUN < 2 L
Creatinine 0.5 L
Glucose 90
Calcium 8.2 L
Vital Signs:
Vital Signs
Temp Pulse Resp BP Pulse Ox
98.2 F 91 16 138/77 95
08/12/25 07:20 08/12/25 07:20 08/12/25 07:20 08/12/25 07:20 08/12/25 07:20
I&O
08/11/25 08/12/25 08/13/25
06:59 06:59 06:59
Intake Total 2775 / 2775 3500 / 3500
Balance 2775 / 2775 3500 / 3500
[2025-08-12] MEDS: KCL 40 MEQ PO ×2 (13:55→16:59)
[2025-08-12 15:04] VITALS: BP 182/96
--- NOTE | 2025-08-12 15:35 | CM ---
CM reviewed chart, patient seen bedside, for potential discharge. IMM verbally reviewed.
to transport home if for d/c today.
Plan; home no needs
[2025-08-12] MEDS: LOVENOX 40 MG SC (16:59)
[2025-08-12 18:17] VITALS: BP 172/100
[2025-08-12] MEDS: DESYREL 100 MG PO (21:19)
[2025-08-12 23:00] VITALS: BP 128/69
[2025-08-13] MEDS: NSS 1000 IV (04:29)
[2025-08-13] MEDS: CIPRO 400 MG 200 IV (05:16)
[2025-08-13 06:00] VITALS: BMI 23.6
[2025-08-13 08:00] VITALS: BP 153/94
[2025-08-13 08:55] LABS: Hematocrit 31.4 % (37.0-47.0); Hemoglobin 11.0 g/dL (12.0-16.0); Mean Corp Hgb Conc. 35.0 g/dL (33.0-37.0); Mean Corpuscular Volume 86.0 fL (81.0-99.0); Nucleated Red Blood Cells % 0 %; Platelet Count 361 10^3/uL (130-400); Red Cell Dist. Width 12.6 % (11.5-14.5)
[2025-08-13 09:57] LABS: Blood Urea Nitrogen < 2 mg/dl (7-17); Calcium 8.4 mg/dl (8.4-10.2); Carbon Dioxide 30 mmol/L (22-30); Chloride 100 mmol/L (98-107); Estimated Creatinine Clearance 76 ml/min; Glucose 91 mg/dl (70-99); Potassium 3.1 mmol/L (3.5-5.1); Sodium 135 mmol/L (135-145); eGFR > 60.00
--- NOTE | 2025-08-13 12:48 | W.PN.HOSP.TC ---
Today's Communication/Plan
-
Monitor vital signs see plan
Switch to p.o. ciprofloxacin
Replete potassium
Discharge today
Time of discharge 38 minutes
Assessment / Plan
Assessment / Plan
initial presentation:
Patient is a 64y F with PMH significant for IBS and breast cancer who presents to ED complaining of N/V/D x 3-[address] abd:
Questionable mild large and small bowel wall thickening versus findings due to limited distention.
Limited evaluation without oral contrast.
If thickened the differential diagnoses include infection, inflammation and less likely ischemia.
No evidence of intestinal obstruction.
Mild diverticulosis. No evidence of acute diverticulitis.
Mild free fluid in the pelvis likely reactive.
Hospital course by problem and A/P:
Suspect acute Gastroenteritis / Colitis - CT with SB and large bowel thickening likely secondary to Salmonella
Sepsis likely 2/2 salmonella
Was initially managed conservatively however now started to spike fever and no improvement in her symptoms. Continue with ciprofloxacin. Seen by GI
Supportive care including IVFs, antiemetics, etc.
cw LRD, now tolerated
Diarrhea has been improving
Follow fever curve
bcx NGTD
Hyponatremia - Likely hypovolemic hyponatremia secondary to the above.
IVF support as noted above and follow for improvement in Na levels.
Restart chlorthalidone on discharge
Osteoporosis
Holding chlorthalidone secondary to hyponatremia
Start hydralazine as needed
hypokalemia
replete
Will give few days supply of oral potassium, patient aware to stop potassium repletion when diarrhea improves
DVT Prophylaxis: lovenox
Code Status: Full
General: Well Developed, Well Nourished, No Apparent Distress and Comfortable
HEENT: Normocephalic, Atraumatic and Moist Mucous Membranes
Respiratory: Clear to Auscultation
Cardiac: Regular Rhythm and S1/S2
GI: Soft, mild tender and Nondistended
Musculoskeletal: No Edema
Psych: Calm
Anticipated Discharge: Today
Subjective/Interval History
-
Date of Service: August 13, 2025
Feeling better
Objective Data
-
Labs:
Laboratory Results
08/13/25
08:23
WBC 7.9
Hgb 11.0 L
Hct 31.4 L
Plt Count 361
Sodium 135
Potassium 3.1 L
Chloride 100
Carbon Dioxide 30
BUN < 2 L
Creatinine 0.5 L
Glucose 91
Calcium 8.4
Vital Signs:
Vital Signs
Temp Pulse Resp BP Pulse Ox
97.7 F 83 16 153/94 96
08/13/25 08:00 08/13/25 08:00 08/13/25 08:00 08/13/25 08:00 08/13/25 08:00
I&O
08/12/25 08/13/25 08/14/25
06:59 06:59 06:59
Intake Total 3500 / 3500 1140 / 1140
Balance 3500 / 3500 1140 / 1140
[2025-08-13] MEDS: KCL 40 MEQ PO (12:54)
--- NOTE | 2025-08-13 12:56 | W.DCSUMMARY ---
Discharge Summary
Discharge Data
Date of Admission: 08/06/25
Date of Discharge: 08/13/25
-
Pending Results: No
Hospital Course
64-year-old female with past medical history of IBS, breast cancer, osteoporosis came to the hospital with nausea vomiting and diarrhea. Initially patient was manage conservatively however then she started to spike fever along with ongoing diarrhea
and abdominal discomfort. Upon stool studies,'s Salmonella eventually resulted positive. Patient antibiotic was then changed to ciprofloxacin per GI recommendation. Patient symptoms were also managed conservatively with aggressive IV fluid
resuscitation. Blood cultures were also done which were negative. She also had hyponatremia which overnight continued to improve with fluids. Once her symptoms continue to improve and she was able to tolerate low residue diet, her antibiotic was
then switched to oral and she was discharged with instructions to follow-up closely with all her physicians outpatient.
Discharge Plan
-
Patient Disposition: Home (Routine Discharge)
Discharge Diagnosis/Procedures: Acute gastroenteritis/colitis secondary to Salmonella
Hyponatremia
Hypokalemia
Diet: Low Residue
Activity: As tolerated
Driving Restrictions: As prior to admission
Bathing Restrictions: None
Blood Work: BMP next week with primary care provider
Activity Restrictions/Additional Instructions:
Take 20 mg mEq twice daily potassium for 3 days. Repeat BMP next week with primary care provider
Referrals:
UNKNOWN - PT NOT,INTERVIEWE [Family Provider, Family Practice] - in less than 1 week
Prescriptions:
New
acetaminophen 325 mg Tablet
650 mg PO Q4HPRN PRN (Reason: Mild Pain / Temp > 101) Qty: 0 0RF
ciprofloxacin HCl [Cipro] 500 mg tablet
500 mg PO BID Qty: 8 0RF
potassium chloride 20 mEq packet
20 meq PO BID 3 Days Qty: 6 0RF
Continued
calcium carbonate-vitamin D3 1 CAP capsule
1 cap PO DAILY
chlorthalidone 25 mg tablet
25 mg PO DAILY
trazodone 100 mg tablet
100 mg PO HSPRN PRN (Reason: sleep)
Visbiome 112.5 billion cell Capsule
1 cap PO BID
magnesium glycinate 100 mg Tablet
100 mg PO HS
cholecalciferol (vitamin D3) 125 mcg (5,000 unit) Tablet
125 mcg PO Q48H
Neuriva Original 100-100 mg Capsule
1 cap PO DAILY
NyQuil Liquicaps
1 cap PO HS
Discharge Orders:
Discharge Patient (As Directed); Ordered 08/13/25
Ordered By: Get Ortiz
Discharge Date and Time
Discharge Date/Time: 08/13/25 13:57
Print Language: SLOVAK
== END 2025-08-13 13:57 | disposition home or self-care (01) | DRG 872 ==
LOC: 4 WEST ACU 20:17
PROVIDERS: Internal Medicine; Student in an Organized Health Care Education/Training Program; ADMITTING PHYSICIAN Hospitalist; ATTENDING PHYSICIAN Internal Medicine; CONSULT PHYSICIAN Internal Medicine Gastroenterology; EMERGENCY PHYSICIAN Emergency Medicine
DX: A41.9 Sepsis, unspecified organism (principal); A02.0 Salmonella enteritis; E87.1 Hypo-osmolality and hyponatremia; K57.30 Diverticulosis of large intestine without perforation or abscess without bleeding; E87.6 Hypokalemia; I10 Essential (primary) hypertension; K58.9 Irritable bowel syndrome, unspecified; E86.1 Hypovolemia; M81.0 Age-related osteoporosis without current pathological fracture; E86.0 Dehydration; Z85.3 Personal history of malignant neoplasm of breast
CPT/HCPCS: 74177; 80048; 80053; 81003; 81015; 82248; 83605; 83690; 83735; 83935; 84145; 84300; 84439; 84443; 85025; 85027; 87040; 87045; 87046; 87077; 87184; 87186; 87324; 87328; 87329; 87427; 87449; 87798; 89055; 96361; 96374; 99283; 99284; Q9967

== ENCOUNTER → 2025-08-23 07:59 | Outpatient (REF) | payer MEDICARE, OTHER, SELFPAY | LOC: WDC 07:59 | PROVIDERS: ATTENDING PHYSICIAN Nurse Practitioner Adult Health | DX: Z12.31 Encounter for screening mammogram for malignant neoplasm of breast (principal) | CPT/HCPCS: 77063; 77067 ==